=== PATIENT | male | born 1980 | race Caucasian/White ===

== ENCOUNTER 2017-09-23 15:18 | Emergency (ER) | payer OTHER ==
[~2017-09-23] VITALS: Ht 195.6 cm; Wt 104.5 kg
[2017-09-23 15:23] VITALS: TEMP 98.3
[2017-09-23] MEDS ORDERED: TOPAMAX 100MG100 M1 PO (15:52)
[2017-09-23] MEDS ORDERED: PROZAC 20MG20 MG PO (15:52)
[2017-09-23] MEDS ORDERED: NORCO 325 MG-51 TAB PO (18:24)
[2017-09-23 18:40] VITALS: BP 115/67; PULSE 65
== END 2017-09-23 18:45 | disposition home or self-care (01) ==
LOC: COL.ER 15:18
DX: S61.012A Laceration without foreign body of left thumb without damage to nail, initial encounter (principal); F17.210 Nicotine dependence, cigarettes, uncomplicated; W26.8XXA Contact with other sharp object(s), not elsewhere classified, initial encounter